=== PATIENT | male | born 1935 | race Caucasian/White ===

== ENCOUNTER 2022-08-23 08:04 | Inpatient (IN) | payer MEDICARE ==
[~2022-08-23] VITALS: Ht 167.6 cm; Wt 68.0 kg
[2022-08-23] MEDS ORDERED: SODIUM CHLORIDE 0.9% 1000ML 1,000 ML IV STA ×2 (08:17→10:24)
[2022-08-23 08:31] LABS: BASOPHILS % 0.2 % (0.0-1.0); HEMATOCRIT 45.6 % (38.2-49.6); HEMOGLOBIN 14.3 g/dL (14.0-18.0); LYMPHOCYTES # (AUTO) 0.8 (1.0-3.2); LYMPHOCYTES % 6.9 % (18.0-39.1); MEAN CORPUSCULAR HEMOGLOBIN 31.2 pg (28-32); MEAN CORPUSCULAR HGB CONC 31.4 g/dL (31-35); MEAN CORPUSCULAR VOLUME 99.6 fL (81-99); MONOCYTES # (AUTO) 1.2 (0.2-0.8); MONOCYTES % 9.7 % (4.4-11.3); NEUTROPHILS # (AUTO) 9.9 (2.1-6.9); NEUTROPHILS % 82.8 % (38.7-80.0); PLATELET COUNT 299 x10e3/uL (140-360); RED BLOOD COUNT 4.58 x10e6/uL (4.3-5.7); RED CELL DISTRIBUTION WIDTH 13.1 % (11.7-14.4)
[2022-08-23 08:45] LABS: INR 1.05; PROTHROMBIN TIME 14.7 seconds (11.9-14.5)
[2022-08-23 08:46] LABS: PARTIAL THROMBOPLASTIN TIME 26.7 seconds (23.8-35.5)
[2022-08-23 08:56] LABS: ALBUMIN 2.6 g/dL (3.5-5.0); ALBUMIN/GLOBULIN RATIO 0.5 (0.8-2.0); ANION GAP 20.6 mmol/L (8-16); CALCIUM 9.4 mg/dL (8.4-10.2); CREATININE, SERUM 1.42 mg/dL (0.72-1.25); MAGNESIUM 2.3 MG/DL (1.3-2.1); POTASSIUM 4.6 mmol/L (3.5-5.1)
[2022-08-23] MEDS ORDERED: METHYLPREDNISOLONE SOD SUCC 125 MG/2ML VIAL IV STA (09:00)
[2022-08-23 09:03] LABS: CREATINE KINASE MB 1.3 ng/mL (0-5.0)
[2022-08-23] MEDS ORDERED: Vancomycin IV 1 GM in SODIUM CHLORIDE 0.9% 250ML 250 ML IV ONE (09:30)
[2022-08-23 09:35] LABS: CLARITY,URINE CLEAR (CLEAR); COLOR,URINE YELLOW (YELLOW); KETONES,URINE 2+ (NEGATIVE); LEUKOCYTE ESTERASE ,URINE NEGATIVE (NEGATIVE); NITRITE,URINE NEGATIVE (NEGATIVE); PROTEIN,URINE DIPSTICK 2+ (NEGATIVE)
[2022-08-23 09:36] LABS: URINE UROBILINOGEN 1 mg/dL (0.2 - 1)
[2022-08-23 09:42] LABS: BACTERIA,URINE MODERATE /HPF; EPITHELIAL CELLS,URINE FEW /LPF; WBC,URINE (MAN) 0-5 /HPF (0-5)
[2022-08-23] MEDS ORDERED: ALBUTEROL/IPRATROPIUM 3 ML NEB NEB ONE (10:15)
[2022-08-23] MEDS: OSELTAMIVIR PHOSPHATE 75 MG CAP PO SCH ×2 (10:43→22:39)
[2022-08-23] MEDS ORDERED: ONDANSETRON HCL INJ 2MG/ML 2ML 2 MG/ML VIAL IV PRN ×2 (10:45→11:45)
[2022-08-23 11:06] LABS: ABG HCO3 23 mmol/L (22-26); ABG PCO2 33 mmHg (35-45); ABG PH 7.45 (7.35-7.45); ABG PO2 52 mmHg (80-105); ABG TCO2 24
[2022-08-23] MEDS: ALBUTEROL/IPRATROPIUM 3 ML NEB NEB SCH ×4 (12:12→22:50)
[2022-08-23 14:19] LABS: CREATINE KINASE MB 1.4 ng/mL (0-5.0)
[2022-08-23] MEDS ORDERED: POLYETHYLENE GLYCOL 3350 17 GM PACK PO PRN (14:45)
[2022-08-23] MEDS ORDERED: METOPROLOL TARTRATE INJ 1 MG/ML VIAL IV PRN (14:45)
[2022-08-23 18:28] VITALS: BP 125/60
[2022-08-23] MEDS: DOCUSATE SODIUM 100 MG CAP PO SCH (18:55)
[2022-08-23] MEDS: FAMOTIDINE 20 MG TAB PO SCH ×2 (18:55→23:03)
[2022-08-23] MEDS ORDERED: DEXTROSE 50% SYRINGE 50 ML IV PRN (19:00)
[2022-08-23 20:00] VITALS: BP 137/67
[2022-08-23 20:44] LABS: CREATINE KINASE MB 1.8 ng/mL (0-5.0)
[2022-08-23] MEDS ORDERED: SODIUM CHLORIDE 0.9% 100 ML ONE (22:37)
[2022-08-23] MEDS: INSULIN REGULAR, HUMAN 100 UNIT/1 ML SQ SCH (22:57)
[2022-08-24] VITALS (9 sets, daily range): BP systolic 120–154; BP diastolic 67–88
[2022-08-24] MEDS ORDERED: ASPIRIN81 MG PO (03:00)
[2022-08-24] MEDS ORDERED: LOSARTAN POTAS100 MG PO (03:00)
[2022-08-24] MEDS ORDERED: CLOPIDOGREL75 MG PO (03:00)
[2022-08-24] MEDS ORDERED: PRAVASTATIN SOD40 MG PO (03:00)
[2022-08-24] MEDS ORDERED: METOPROLOL TART25 MG PO (03:00)
[2022-08-24] MEDS: ALBUTEROL/IPRATROPIUM 3 ML NEB NEB SCH ×6 (03:10→22:55)
[2022-08-24 06:15] LABS: BASOPHILS % 0.2 % (0.0-1.0); HEMATOCRIT 35.6 % (38.2-49.6); HEMOGLOBIN 11.8 g/dL (14.0-18.0); LYMPHOCYTES # (AUTO) 0.3 (1.0-3.2); LYMPHOCYTES % 2.7 % (18.0-39.1); MEAN CORPUSCULAR HEMOGLOBIN 31.6 pg (28-32); MEAN CORPUSCULAR HGB CONC 33.1 g/dL (31-35); MEAN CORPUSCULAR VOLUME 95.4 fL (81-99); MONOCYTES # (AUTO) 0.3 (0.2-0.8); MONOCYTES % 3.1 % (4.4-11.3); NEUTROPHILS # (AUTO) 8.8 (2.1-6.9); NEUTROPHILS % 93.6 % (38.7-80.0); PLATELET COUNT 294 x10e3/uL (140-360); RED BLOOD COUNT 3.73 x10e6/uL (4.3-5.7); RED CELL DISTRIBUTION WIDTH 13.2 % (11.7-14.4)
[2022-08-24 06:36] LABS: ALBUMIN 2.9 g/dL (3.5-5.0); ALBUMIN/GLOBULIN RATIO 0.9 (0.8-2.0); ANION GAP 14.3 mmol/L (8-16); CALCIUM 8.5 mg/dL (8.4-10.2); CHOL/HDL RATIO 5.4 (3.9-4.7); CREATININE, SERUM 1.18 mg/dL (0.72-1.25); POTASSIUM 3.3 mmol/L (3.5-5.1)
[2022-08-24 06:51] LABS: CHOL/HDL RATIO 5.3 (3.9-4.7); MAGNESIUM 2.3 MG/DL (1.3-2.1); PHOSPHORUS 2.2 MG/DL (2.3-4.7)
[2022-08-24 07:11] LABS: THYROID STIMULATING HORMONE 0.062 uIU/mL (0.350-4.940)
[2022-08-24 07:13] LABS: CREATINE KINASE MB 1.6 ng/mL (0-5.0)
[2022-08-24 07:38] LABS: PLATELET ESTIMATE ADEQUATE; PLATELET MORPHOLOGY COMMENT NORMAL
[2022-08-24] MEDS: DOCUSATE SODIUM 100 MG CAP PO SCH ×2 (08:42→16:57)
[2022-08-24] MEDS: OSELTAMIVIR PHOSPHATE 75 MG CAP PO SCH ×2 (08:42→16:57)
[2022-08-24] MEDS ORDERED: POTASSIUM CHLORIDE 20 MEQ TAB CR PO ONE (09:30)
[2022-08-24] MEDS: INSULIN REGULAR, HUMAN 100 UNIT/1 ML SQ SCH ×4 (12:26→21:50)
[2022-08-24] MEDS: FAMOTIDINE 20 MG TAB PO SCH (16:58)
[2022-08-25] VITALS: BP 165/75
[2022-08-25] MEDS ORDERED: BENZONATATE 100 MG CAP PO ONE (00:15)
[2022-08-25] MEDS ORDERED: BENZONATATE 100 MG CAP PO PRN (00:15)
[2022-08-25] MEDS: ALBUTEROL/IPRATROPIUM 3 ML NEB NEB SCH ×7 (03:15→23:55)
[2022-08-25 04:00] VITALS: BP 148/72
[2022-08-25 06:18] LABS: BASOPHILS % 0.2 % (0.0-1.0); HEMATOCRIT 34.2 % (38.2-49.6); HEMOGLOBIN 10.7 g/dL (14.0-18.0); LYMPHOCYTES # (AUTO) 0.7 (1.0-3.2); LYMPHOCYTES % 4.1 % (18.0-39.1); MEAN CORPUSCULAR HEMOGLOBIN 30.7 pg (28-32); MEAN CORPUSCULAR HGB CONC 31.3 g/dL (31-35); MONOCYTES % 6.3 % (4.4-11.3); NEUTROPHILS # (AUTO) 14.2 (2.1-6.9); NEUTROPHILS % 88.9 % (38.7-80.0); PLATELET COUNT 362 x10e3/uL (140-360); RED BLOOD COUNT 3.49 x10e6/uL (4.3-5.7); RED CELL DISTRIBUTION WIDTH 13.2 % (11.7-14.4)
[2022-08-25 06:21] LABS: ANION GAP 13.5 mmol/L (8-16); CALCIUM 8.2 mg/dL (8.4-10.2); CREATININE, SERUM 1.07 mg/dL (0.72-1.25); POTASSIUM 3.5 mmol/L (3.5-5.1)
[2022-08-25] MEDS: INSULIN REGULAR, HUMAN 100 UNIT/1 ML SQ SCH ×4 (07:30→20:40)
[2022-08-25] MEDS: DOCUSATE SODIUM 100 MG CAP PO SCH ×2 (08:37→16:49)
[2022-08-25] MEDS: FAMOTIDINE 20 MG TAB PO SCH ×2 (08:37→16:49)
[2022-08-25] MEDS: OSELTAMIVIR PHOSPHATE 75 MG CAP PO SCH ×2 (08:37→16:50)
[2022-08-25 09:09] VITALS: BP 148/72
[2022-08-25 12:00] VITALS: BP 150/79
[2022-08-25 16:00] VITALS: BP 166/93
[2022-08-25] MEDS: METOPROLOL TARTRATE 25 MG TAB PO SCH ×2 (16:49→19:49)
[2022-08-25] MEDS: CLOPIDOGREL BISULFATE 75 MG TAB PO SCH ×2 (16:49→19:49)
[2022-08-25] MEDS: ASPIRIN 81 MG CHEW TAB PO SCH ×2 (16:49→19:48)
[2022-08-25 20:00] VITALS: BP 167/72
[2022-08-25] MEDS: LORAZEPAM 0.5 MG TAB PO PRN (20:33)
[2022-08-26] VITALS: BP 159/70
[2022-08-26] MEDS: ALBUTEROL/IPRATROPIUM 3 ML NEB NEB SCH ×5 (02:39→18:40)
[2022-08-26 04:00] VITALS: BP 140/65
[2022-08-26 05:19] LABS: BASOPHILS % 0.1 % (0.0-1.0); HEMATOCRIT 36.1 % (38.2-49.6); HEMOGLOBIN 11.3 g/dL (14.0-18.0); LYMPHOCYTES # (AUTO) 0.6 (1.0-3.2); LYMPHOCYTES % 5.1 % (18.0-39.1); MEAN CORPUSCULAR HEMOGLOBIN 31.1 pg (28-32); MEAN CORPUSCULAR HGB CONC 31.3 g/dL (31-35); MEAN CORPUSCULAR VOLUME 99.4 fL (81-99); MONOCYTES # (AUTO) 1.1 (0.2-0.8); MONOCYTES % 9.6 % (4.4-11.3); NEUTROPHILS # (AUTO) 9.9 (2.1-6.9); NEUTROPHILS % 84.6 % (38.7-80.0); PLATELET COUNT 325 x10e3/uL (140-360); RED BLOOD COUNT 3.63 x10e6/uL (4.3-5.7); RED CELL DISTRIBUTION WIDTH 13.4 % (11.7-14.4)
[2022-08-26 05:47] LABS: ANION GAP 14.6 mmol/L (8-16); CALCIUM 8.3 mg/dL (8.4-10.2); MAGNESIUM 2.1 MG/DL (1.3-2.1); PHOSPHORUS 2.9 MG/DL (2.3-4.7); POTASSIUM 3.6 mmol/L (3.5-5.1)
[2022-08-26] MEDS: INSULIN REGULAR, HUMAN 100 UNIT/1 ML SQ SCH ×4 (07:30→20:14)
[2022-08-26] MEDS ORDERED: SODIUM CHLORIDE 0.9% 250ML 250 ML ONE (07:51)
[2022-08-26 08:30] VITALS: BP 143/70
[2022-08-26] MEDS: OSELTAMIVIR PHOSPHATE 75 MG CAP PO SCH ×2 (08:50→16:49)
[2022-08-26] MEDS: DOCUSATE SODIUM 100 MG CAP PO SCH ×2 (08:51→16:57)
[2022-08-26] MEDS: FAMOTIDINE 20 MG TAB PO SCH ×2 (08:51→16:49)
[2022-08-26 11:49] VITALS: BP 145/60
[2022-08-26 16:17] VITALS: BP 149/73
[2022-08-26 20:00] VITALS: BP 157/76
[2022-08-26] MEDS: ASPIRIN 81 MG CHEW TAB PO SCH (20:08)
[2022-08-26] MEDS: METOPROLOL TARTRATE 25 MG TAB PO SCH (20:09)
[2022-08-26] MEDS: CLOPIDOGREL BISULFATE 75 MG TAB PO SCH (20:09)
[2022-08-26] MEDS: LORAZEPAM 0.5 MG TAB PO PRN (20:15)
[2022-08-27] VITALS (9 sets, daily range): BP systolic 130–173; BP diastolic 62–98
[2022-08-27] MEDS: ALBUTEROL/IPRATROPIUM 3 ML NEB NEB SCH ×6 (01:15→20:40)
[2022-08-27 06:30] LABS: BASOPHILS % 0.1 % (0.0-1.0); EOSINOPHILS % 0.2 % (0.0-6.0); HEMATOCRIT 38.1 % (38.2-49.6); HEMOGLOBIN 11.7 g/dL (14.0-18.0); LYMPHOCYTES # (AUTO) 0.8 (1.0-3.2); LYMPHOCYTES % 7.6 % (18.0-39.1); MEAN CORPUSCULAR HEMOGLOBIN 30.9 pg (28-32); MEAN CORPUSCULAR HGB CONC 30.7 g/dL (31-35); MEAN CORPUSCULAR VOLUME 100.5 fL (81-99); MONOCYTES % 9.9 % (4.4-11.3); NEUTROPHILS # (AUTO) 8.2 (2.1-6.9); NEUTROPHILS % 81.6 % (38.7-80.0); PLATELET COUNT 293 x10e3/uL (140-360); RED BLOOD COUNT 3.79 x10e6/uL (4.3-5.7); RED CELL DISTRIBUTION WIDTH 13.5 % (11.7-14.4)
[2022-08-27 06:51] LABS: ANION GAP 15.7 mmol/L (8-16); CALCIUM 8.4 mg/dL (8.4-10.2); CREATININE, SERUM 0.92 mg/dL (0.72-1.25); MAGNESIUM 2.1 MG/DL (1.3-2.1); PHOSPHORUS 3.4 MG/DL (2.3-4.7); POTASSIUM 3.7 mmol/L (3.5-5.1)
[2022-08-27] MEDS: INSULIN REGULAR, HUMAN 100 UNIT/1 ML SQ SCH (07:30)
[2022-08-27] MEDS ORDERED: ONDANSETRON HCL 4 MG ORAL DISINTEGRATING TAB PO PRN (07:30)
[2022-08-27] MEDS: DOCUSATE SODIUM 100 MG CAP PO SCH ×2 (09:00→16:14)
[2022-08-27] MEDS: FAMOTIDINE 20 MG TAB PO SCH ×2 (09:00→16:14)
[2022-08-27] MEDS: OSELTAMIVIR PHOSPHATE 75 MG CAP PO SCH ×2 (09:00→16:14)
[2022-08-27] MEDS ORDERED: LORAZEPAM 0.5 MG TAB PO PRN (12:15)
[2022-08-27] MEDS: LORAZEPAM 0.5 MG TAB PO SCH ×2 (16:16→23:33)
[2022-08-27] MEDS: METOPROLOL TARTRATE 25 MG TAB PO SCH (20:33)
[2022-08-27] MEDS: ASPIRIN 81 MG CHEW TAB PO SCH (20:34)
[2022-08-27] MEDS: CLOPIDOGREL BISULFATE 75 MG TAB PO SCH (20:34)
[2022-08-27] MEDS ORDERED: GUAIFENESIN 600 MG TAB PO SCH (21:00)
[2022-08-28] VITALS (7 sets, daily range): BP systolic 147–160; BP diastolic 68–80
[2022-08-28] MEDS: LORAZEPAM 0.5 MG TAB PO SCH ×4 (05:45→21:02)
[2022-08-28] MEDS: ALBUTEROL/IPRATROPIUM 3 ML NEB NEB SCH ×5 (07:00→23:03)
[2022-08-28 07:32] LABS: BASOPHILS % 0.1 % (0.0-1.0); EOSINOPHILS # (AUTO) 0.1 (0.0-0.4); EOSINOPHILS % 1.5 % (0.0-6.0); HEMATOCRIT 38.8 % (38.2-49.6); HEMOGLOBIN 12.1 g/dL (14.0-18.0); LYMPHOCYTES # (AUTO) 0.9 (1.0-3.2); LYMPHOCYTES % 10.2 % (18.0-39.1); MEAN CORPUSCULAR HEMOGLOBIN 30.8 pg (28-32); MEAN CORPUSCULAR HGB CONC 31.2 g/dL (31-35); MEAN CORPUSCULAR VOLUME 98.7 fL (81-99); MONOCYTES # (AUTO) 1.1 (0.2-0.8); NEUTROPHILS # (AUTO) 6.3 (2.1-6.9); NEUTROPHILS % 74.5 % (38.7-80.0); PLATELET COUNT 225 x10e3/uL (140-360); RED BLOOD COUNT 3.93 x10e6/uL (4.3-5.7); RED CELL DISTRIBUTION WIDTH 13.5 % (11.7-14.4)
[2022-08-28 07:50] LABS: CALCIUM 8.6 mg/dL (8.4-10.2); CREATININE, SERUM 0.86 mg/dL (0.72-1.25)
[2022-08-28] MEDS: DOCUSATE SODIUM 100 MG CAP PO SCH ×2 (09:49→15:31)
[2022-08-28] MEDS: FAMOTIDINE 20 MG TAB PO SCH ×2 (09:49→15:27)
[2022-08-28] MEDS: OSELTAMIVIR PHOSPHATE 75 MG CAP PO SCH (09:49)
[2022-08-28] MEDS: AZITHROMYCIN 250 MG TAB PO SCH (09:49)
[2022-08-28] MEDS: ASPIRIN 81 MG CHEW TAB PO SCH (20:52)
[2022-08-28] MEDS: METOPROLOL TARTRATE 25 MG TAB PO SCH (20:52)
[2022-08-28] MEDS: ACETAMINOPHEN 325 MG TAB PO PRN (20:53)
[2022-08-28] MEDS: CLOPIDOGREL BISULFATE 75 MG TAB PO SCH (20:53)
[2022-08-29] VITALS (8 sets, daily range): BP systolic 130–148; BP diastolic 64–86
[2022-08-29] MEDS: ALBUTEROL/IPRATROPIUM 3 ML NEB NEB SCH ×6 (00:20→20:20)
[2022-08-29] MEDS: LORAZEPAM 0.5 MG TAB PO SCH ×3 (06:00→17:53)
[2022-08-29] MEDS: ACETAMINOPHEN 325 MG TAB PO PRN ×3 (06:24→22:18)
[2022-08-29 06:31] LABS: BASOPHILS % 0.3 % (0.0-1.0); EOSINOPHILS # (AUTO) 0.2 (0.0-0.4); HEMATOCRIT 32.6 % (38.2-49.6); HEMOGLOBIN 10.8 g/dL (14.0-18.0); LYMPHOCYTES % 12.4 % (18.0-39.1); MEAN CORPUSCULAR HEMOGLOBIN 31.2 pg (28-32); MEAN CORPUSCULAR HGB CONC 33.1 g/dL (31-35); MEAN CORPUSCULAR VOLUME 94.2 fL (81-99); MONOCYTES # (AUTO) 1.1 (0.2-0.8); MONOCYTES % 13.2 % (4.4-11.3); NEUTROPHILS # (AUTO) 5.7 (2.1-6.9); NEUTROPHILS % 71.3 % (38.7-80.0); PLATELET COUNT 368 x10e3/uL (140-360); RED BLOOD COUNT 3.46 x10e6/uL (4.3-5.7); RED CELL DISTRIBUTION WIDTH 13.2 % (11.7-14.4)
[2022-08-29 07:06] LABS: ALBUMIN 2.6 g/dL (3.5-5.0); ALBUMIN/GLOBULIN RATIO 0.9 (0.8-2.0); ANION GAP 11.5 mmol/L (8-16); CALCIUM 8.2 mg/dL (8.4-10.2); CREATININE, SERUM 0.86 mg/dL (0.72-1.25); POTASSIUM 3.5 mmol/L (3.5-5.1)
[2022-08-29] MEDS ORDERED: POTASSIUM CHLORIDE 20 MEQ TAB CR PO ONE (08:45)
[2022-08-29] MEDS: DOCUSATE SODIUM 100 MG CAP PO SCH ×2 (09:00→15:59)
[2022-08-29] MEDS: FAMOTIDINE 20 MG TAB PO SCH ×2 (09:18→15:50)
[2022-08-29] MEDS: AZITHROMYCIN 250 MG TAB PO SCH (09:19)
[2022-08-29] MEDS: ASPIRIN 81 MG CHEW TAB PO SCH (21:49)
[2022-08-29] MEDS: CLOPIDOGREL BISULFATE 75 MG TAB PO SCH (21:50)
[2022-08-29] MEDS: METOPROLOL TARTRATE 25 MG TAB PO SCH (21:51)
[2022-08-30] VITALS (8 sets, daily range): BP systolic 110–136; BP diastolic 59–73
[2022-08-30] MEDS: LORAZEPAM 0.5 MG TAB PO SCH ×5 (00:15→23:17)
[2022-08-30] MEDS: ALBUTEROL/IPRATROPIUM 3 ML NEB NEB SCH ×5 (02:20→23:48)
[2022-08-30] MEDS: FAMOTIDINE 20 MG TAB PO SCH ×2 (09:32→17:13)
[2022-08-30] MEDS: DOCUSATE SODIUM 100 MG CAP PO SCH ×2 (09:32→17:00)
[2022-08-30] MEDS: LOSARTAN POTASSIUM 100 MG TAB PO SCH (09:32)
[2022-08-30] MEDS: AZITHROMYCIN 250 MG TAB PO SCH (09:33)
[2022-08-30] MEDS: METOPROLOL TARTRATE 25 MG TAB PO SCH (21:00)
[2022-08-30] MEDS: CLOPIDOGREL BISULFATE 75 MG TAB PO SCH (21:21)
[2022-08-30] MEDS: ASPIRIN 81 MG CHEW TAB PO SCH (21:21)
[2022-08-31] VITALS: BP 125/84
[2022-08-31] MEDS: ALBUTEROL/IPRATROPIUM 3 ML NEB NEB SCH ×4 (03:00→15:16)
[2022-08-31 04:00] VITALS: BP 98/47
[2022-08-31] MEDS: LORAZEPAM 0.5 MG TAB PO SCH ×2 (04:50→12:00)
[2022-08-31 05:48] LABS: BASOPHILS % 0.3 % (0.0-1.0); EOSINOPHILS # (AUTO) 0.2 (0.0-0.4); EOSINOPHILS % 2.3 % (0.0-6.0); HEMATOCRIT 28.7 % (38.2-49.6); HEMOGLOBIN 9.2 g/dL (14.0-18.0); LYMPHOCYTES # (AUTO) 1.5 (1.0-3.2); LYMPHOCYTES % 15.2 % (18.0-39.1); MEAN CORPUSCULAR HEMOGLOBIN 30.9 pg (28-32); MEAN CORPUSCULAR HGB CONC 32.1 g/dL (31-35); MEAN CORPUSCULAR VOLUME 96.3 fL (81-99); MONOCYTES % 9.5 % (4.4-11.3); NEUTROPHILS # (AUTO) 7.1 (2.1-6.9); NEUTROPHILS % 71.5 % (38.7-80.0); PLATELET COUNT 475 x10e3/uL (140-360); RED BLOOD COUNT 2.98 x10e6/uL (4.3-5.7); RED CELL DISTRIBUTION WIDTH 13.2 % (11.7-14.4)
[2022-08-31 06:28] LABS: ANION GAP 12.7 mmol/L (8-16); CALCIUM 8.4 mg/dL (8.4-10.2); CREATININE, SERUM 0.9 mg/dL (0.72-1.25); MAGNESIUM 2.3 MG/DL (1.3-2.1); POTASSIUM 3.7 mmol/L (3.5-5.1)
[2022-08-31 07:43] VITALS: BP 117/66
[2022-08-31 09:00] VITALS: BP 117/66
[2022-08-31] MEDS: FAMOTIDINE 20 MG TAB PO SCH ×2 (10:19→16:43)
[2022-08-31] MEDS: DOCUSATE SODIUM 100 MG CAP PO SCH (10:20)
[2022-08-31] MEDS: LOSARTAN POTASSIUM 100 MG TAB PO SCH (10:20)
[2022-08-31 11:19] VITALS: BP 108/56
[2022-08-31] MEDS ORDERED: ONDANSETRON ODT4 MG PO (13:07)
[2022-08-31] MEDS ORDERED: Albuterol/Ipratropium Nebulize NEB (13:07)
[2022-08-31] MEDS ORDERED: AZITHROMYCIN250 MG PO (13:07)
[2022-08-31] MEDS ORDERED: CEFUROXIME500 MG PO (13:07)
[2022-08-31] MEDS ORDERED: ACETAMINOPHEN325 M1 PO (13:07)
[2022-08-31] MEDS ORDERED: Docusate Sodium PO (13:07)
[2022-08-31 15:31] VITALS: BP 110/57
== END 2022-08-31 19:20 | disposition home health service (06) | DRG 871 ==
LOC: ER 08:09 → IMCU 10:32 → MED/SURG3 17:33
PROVIDERS: ADMIT Internal Medicine; ATTEND Internal Medicine
DX: A41.9 Sepsis, unspecified organism (principal); J10.00 Influenza due to other identified influenza virus with unspecified type of pneumonia; J69.0 Pneumonitis due to inhalation of food and vomit; J18.9 Pneumonia, unspecified organism; N17.9 Acute kidney failure, unspecified; I69.351 Hemiplegia and hemiparesis following cerebral infarction affecting right dominant side; I13.0 Hypertensive heart and chronic kidney disease with heart failure and stage 1 through stage 4 chronic kidney disease, or unspecified chronic kidney disease; J44.0 Chronic obstructive pulmonary disease with (acute) lower respiratory infection; R06.03 Acute respiratory distress; R09.02 Hypoxemia; N18.9 Chronic kidney disease, unspecified; Z93.3 Colostomy status; E87.6 Hypokalemia; Z66 Do not resuscitate; R13.12 Dysphagia, oropharyngeal phase; J44.9 Chronic obstructive pulmonary disease, unspecified; E83.41 Hypermagnesemia; R65.20 Severe sepsis without septic shock; I50.9 Heart failure, unspecified
CPT/HCPCS: 36415; 36600; 71045; 71250; 74230; 80048; 80053; 80061; 81001; 82550; 82553; 82805; 82948; 83036; 83518; 83605; 83735; 83880; 84100; 84439; 84443; 84480; 84484; 85025; 85610; 85730; 87040; 87070; 87086; 87449; 93005; 93306; 94640; 94799; 96372; 99251; 99285; J0456; J0696; J1817; J2930; J3370; J7030; J7050